=== PATIENT | female | born 1985 | race Caucasian/White ===

== ENCOUNTER 2019-07-18 13:01 | Emergency (ER) | payer SELFPAY ==
--- NOTE | 2019-07-18 14:51 | ER Document Report ---
HPI - HPI Time Seen by Provider: 07/18/19 14:24 Pain Level: 2 Context: Patient is a 33-year-old female with a history of hepatitis C who presents to the emergency department with urinary symptoms. Patient states about a few weeks ago she started having urinary frequency and burning with urination. Patient states she thought that this would get better. Patient states yesterday she did start taking Azo which does seem to be helping with the pelvic pain. Patient states she has a lot of pressure to the vagina when she urinates. Patient reports her last menstrual cycle was 1 to 2 weeks ago. Patient reports a subjective fever. Patient states she has not actually taken her temperature at home but did have chills. Patient denies nausea, vomiting or diarrhea. Patient states she has not had vaginal discharge but did states she had mucus but came out of the urethra. - REPRODUCTIVE Reproductive: DENIES: : Past Medical History - General Information source: Patient - Social History Smoking Status: Current Every Day Smoker Lives with: Spouse/Significant other Family History: None - Past Medical History Cardiac Medical History: Reports: None Pulmonary Medical History: Reports: None EENT Medical History: Reports: None Neurological Medical History: Reports: None Endocrine Medical History: Reports: None Renal/ Medical History: Reports: None Malignancy Medical History: Reports: None GI Medical History: Reports: Hx Hepatitis Musculoskeletal Medical History: Reports None Skin Medical History: Reports None Psychiatric Medical History: Reports: None Traumatic Medical History: Reports: None Infectious Medical History: Reports: None Surgical Hx: Negative Vertical Provider Document - CONSTITUTIONAL Agree With Documented VS: Yes Exam Limitations: No Limitations General Appearance: No Apparent Distress - HEENT HEENT: Atraumatic, Normal ENT Exam, Normocephalic, PERRLA - NECK Neck: Normal Inspection - RESPIRATORY Respiratory: Breath Sounds Normal, No Respiratory Distress - CARDIOVASCULAR Cardiovascular: Regular Rate, Regular Rhythm - GI/ABDOMEN Gastrointestinal: Abdomen Soft, Normal Bowel Sounds Notes: Suprapubic pain with palpation - BACK Notes: No CVA tenderness. - NEURO Level of Consciousness: Awake, Alert, Appropriate - DERM Integumentary: Warm, Dry Course - Re-evaluation Re-evalutation: 07/18/19 14:50 Will obtain a urinalysis as well as a urine . 07/18/19 15:52 I would not be prescribing Pyridium or Azo as this is contraindicated and hepatitis. Patient does report a history of hepatitis C. I did inform the patient to stop taking [id number] Azo. - Vital Signs Vital signs: Temp Pulse Resp BP Pulse Ox 98.4 F 94 18 105/56 L 98 07/18/19 13:11 07/18/19 13:11 07/18/19 13:11 07/18/19 13:11 07/18/19 13:11 - Laboratory Laboratory results interpreted by me: 07/18/19 15:50 Laboratory 07/18/19 15:14 Urine Color ORANGE Urine Appearance SLIGHTLY-CLOUDY Urine pH 5.0 Ur Specific [place] 1.017 Urine Protein 100 H Urine Glucose (UA) NEGATIVE Urine Ketones NEGATIVE Urine Blood SMALL H Urine Nitrite POSITIVE H Urine Bilirubin NEGATIVE Urine Urobilinogen 4.0 H Ur Leukocyte Esterase SMALL H Urine WBC (Auto) >182 Urine RBC (Auto) 10 Urine WBC Clumps MOD Squamous Epi Cells Auto 3 Urine Mucus (Auto) FEW Urine Ascorbic Acid NEGATIVE Urine HCG, Qual NEGATIVE Discharge - Discharge Clinical Impression: Dysuria UTI (urinary tract infection) Qualifiers: Urinary tract infection type: acute cystitis Hematuria presence: with hematuria Qualified Code(s): N30.01 - Acute cystitis with hematuria Condition: Stable Disposition: HOME, SELF-CARE Instructions: Cephalexin ([facility]), Urinary Anesthetic Agent ([facility]), Urinary Tract Infection ([facility]) Additional Instructions: Today you are seen in the emergency department for urinary symptoms. It does appear that you have a urinary tract infection. He will be placed on Keflex which she will take twice a day for 7 days. We will give you your first dose while in the emergency department. I am giving you a prescription for Pyridium. Please take this for bottom spasms as needed. Stop taking the [id number] Azo as this is the same thing as the Pyridium. Please seek medical attention for fever, abdominal pain, vomiting or any worsening signs or symptoms. Prescriptions: Cephalexin Monohydrate [Keflex 500 mg Capsule] 500 mg PO BID 7 Days capsule
[2019-07-18 15:34] LABS: APPEARANCE,URINE SLIGHTLY-CLOUDY; BILIRUBIN,URINE NEGATIVE (NEGATIVE); GLUCOSE, URINE NEGATIVE (NEGATIVE); KETONES,URINE NEGATIVE (NEGATIVE); LEUKOCYTE ESTERASE,URINE SMALL (NEGATIVE); NITRITE,URINE POSITIVE (NEGATIVE); PROTEIN,URINE 100 mg/dL (NEGATIVE); URINE SPECIFIC GRAVITY 1.017
[2019-07-18 15:35] LABS: COLOR,URINE ORANGE
[2019-07-18] MEDS ORDERED: CEPHALEXIN 500 MG CAPSULE PO ONE (15:45)
[2019-07-18 16:03] VITALS: BP 90/53
== END 2019-07-18 16:05 | disposition home or self-care (01) ==
LOC: ER 13:01
DX: N30.01 Acute cystitis with hematuria (principal); R30.0 Dysuria; F17.200 Nicotine dependence, unspecified, uncomplicated; Z86.19 Personal history of other infectious and parasitic diseases
CPT/HCPCS: 81001; 81025; 87086; 99283